=== PATIENT | female | born 2000 | race Two or more races ===

== ENCOUNTER 2019-08-24 19:31 | Emergency (ER) | payer OTHER ==
[~2019-08-24] VITALS: Ht 167.6 cm; Wt 127.0 kg
[2019-08-24 22:49] LABS: BILIRUBIN,URINE NEGATIVE (NEG); CLARITY,URINE CLEAR; COLOR,URINE YELLOW; NITRITE,URINE NEGATIVE (NEG); PH,URINE 6.5 (<5.0-8.0); PROTEIN,URINE NEGATIVE (NEG-TRACE); UROBILINOGEN,URINE 0.2 mg/dL (0.2 mg/dL)
[2019-08-24 22:54] LABS: BACTERIA,URINE FEW /HPF (0-FEW); RBC,URINE 0 /HPF (0-2); SQUAMOUS EPITHELIAL CELL,UR MOD /LPF; WBC,URINE RARE /HPF (0-4)
--- NOTE | 2019-08-24 22:54 | PHYS DOC ---
Past Medical History Past Medical History: No Pertinent History Past Surgical History: No Surgical History Smoking Status: Never Smoker Alcohol Use: None Adult General Chief Complaint Chief Complaint: ABDOMINAL PAIN IN HPI HPI Patient is a 18 year old female who presents with states that this morning she picked up her daughter and began having bilateral lower abdominal cramping. She states is been intermittent all day. She states is gotten worse tonight. She states that she has been having diarrhea since yesterday. She stated that today she had 6 or 7 bouts of diarrhea. She denies any vomiting or fever or recent illness. She denies any nausea. Patient denies any vaginal bleeding. She states she is 6 weeks and her OB doctor is at [facility]. States she has not taken anything for pain as she had a miscarriage from taking Tylenol the last time. She states that her OB doctor told her not to take any Tylenol. She rates her pain an 8 out of 10. Review of Systems Review of Systems GI: abdominal pain, denies nausea, vomiting, bloody stools. + diarrhea [] All other systems were reviewed and found to be within normal limits, except as documented in this note. Current Medications Current Medications Current Medications Medications (Trade) Dose Ordered Sig/Matilda Start Time Stop Time Status Last Admin Dose Admin Sodium Chloride 1,000 ml @ 1,000 mls/hr 1X ONCE 08/24/19 23:00 08/24/19 23:59 DC 08/24/19 23:26 1,000 MLS/HR Allergies Allergies Allergies Coded Allergies Type Severity Reaction Last Updated Verified No Known Drug Allergies 08/31/15 No Physical Exam Physical Exam Constitutional: Well developed, well nourished, no acute distress, non-toxic appearance. [] HENT: Normocephalic, atraumatic, bilateral external ears normal, oropharynx moist, no oral exudates, nose normal. [] Eyes: PERRLA, EOMI, conjunctiva normal, no discharge. [] Neck: Normal range of motion, no tenderness, supple, no stridor. [] Cardiovascular:Heart rate regular rhythm, no murmur [] Lungs & Thorax: Bilateral breath sounds clear to auscultation [] Abdomen: Bowel sounds normal, soft, RLQ tenderness, no masses, no pulsatile masses. [] Skin: Warm, dry, no erythema, no rash. [] Back: No tenderness, no CVA tenderness. [] Extremities: No tenderness, no cyanosis, no clubbing, ROM intact, no edema. [] Neurologic: Alert and oriented X 3, normal motor function, normal sensory function, no focal deficits noted. [] Psychologic: Affect normal, judgement normal, mood normal. [] Current Patient Data Vital Signs Vital Signs Date Time Temp Pulse Resp B/P (MAP) Pulse Ox O2 Delivery O2 Flow Rate FiO2 08/25/19 01:01 98.5 98.5 08/24/19 19:46 84 16 151/78 (102) 98 Room Air Lab Values Laboratory Tests Test 08/24/19 22:41 08/24/19 22:44 08/25/19 00:18 Urine Collection Type Void Urine Color Yellow Urine Clarity Clear Urine pH 6.5 (<5.0-8.0) Urine Specific [place] 1.025 (1.000-1.030) Urine Protein Negative mg/dL (NEG-TRACE) Urine Glucose (UA) Negative mg/dL (NEG) Urine Ketones (Stick) Negative mg/dL (NEG) Urine Blood Negative (NEG) Urine Nitrite Negative (NEG) Urine Bilirubin Negative (NEG) Urine Urobilinogen Dipstick 0.2 mg/dL (0.2 mg/dL) Urine Leukocyte Esterase Negative (NEG) Urine RBC 0 /HPF (0-2) Urine WBC Rare /HPF (0-4) Urine Squamous Epithelial Cells Mod /LPF Urine Bacteria Few /HPF (0-FEW) Urine Mucus Marked /LPF POC Urine HCG, Qualitative Hcg positive (Negative) White Blood Count 18.4 x10^3/uL (4.0-11.0) H Red Blood Count 5.02 x10^6/uL (3.50-5.40) Hemoglobin 11.6 g/dL (12.0-15.5) L Hematocrit 36.7 % (36.0-47.0) Mean Corpuscular Volume 73 fL (79-100) L Mean Corpuscular Hemoglobin 23 pg (25-35) L Mean Corpuscular Hemoglobin Concent 32 g/dL (31-37) Red Cell Distribution Width 15.2 % (11.5-14.5) H Platelet Count 284 x10^3/uL (140-400) Neutrophils (%) (Auto) 68 % (31-73) Lymphocytes (%) (Auto) 26 % (24-48) Monocytes (%) (Auto) 5 % (0-9) Eosinophils (%) (Auto) 0 % (0-3) Basophils (%) (Auto) 1 % (0-3) Neutrophils # (Auto) 12.5 x10^3/uL (1.8-7.7) H Lymphocytes # (Auto) 4.9 x10^3/uL (1.0-4.8) H Monocytes # (Auto) 0.9 x10^3/uL (0.0-1.1) Eosinophils # (Auto) 0.0 x10^3/uL (0.0-0.7) Basophils # (Auto) 0.1 x10^3/uL (0.0-0.2) Prothrombin Time 13.5 SEC (11.7-14.0) Prothrombin Time INR 1.1 (0.8-1.1) Maternal Serum HCG Beta Subunit 388 mIU/mL (0-5) H Sodium Level 138 mmol/L (136-145) Potassium Level 3.9 mmol/L (3.5-5.1) Chloride Level 103 mmol/L (98-107) Carbon Dioxide Level 24 mmol/L (21-32) Anion Gap 11 (6-14) Blood Urea Nitrogen 10 mg/dL (7-20) Creatinine 0.5 mg/dL (0.6-1.0) L Estimated GFR (Cockcroft-Gault) 157.3 BUN/Creatinine Ratio 20 (6-20) Glucose Level 95 mg/dL (70-99) Calcium Level 9.1 mg/dL (8.5-10.1) Total Bilirubin 0.2 mg/dL (0.2-1.0) Aspartate Amino Transferase (AST) 13 U/L (15-37) L Alanine Aminotransferase (ALT) 18 U/L (14-59) Alkaline Phosphatase 91 U/L (46-116) Total Protein 6.9 g/dL (6.4-8.2) Albumin 3.5 g/dL (3.4-5.0) Albumin/Globulin Ratio 1.0 (1.0-1.7) Laboratory Tests 08/25/19 00:18 Laboratory Tests 08/25/19 00:18 EKG EKG [] Radiology/Procedures Radiology/Procedures [] Impressions: [facility] [address] [place] [address] IMAGING REPORT Signed PATIENT: DENAE MONIQUE ACCOUNT: [id number] : 2000 LOCATION: ER AGE: 18 SEX: F EXAM STATUS: REG ER ORD. PHYSICIAN: MICHEAL MADISON APRN REASON: abdominal pain PROCEDURE: OB <14 WKS W/TV INDICATION: Pelvic cramping COMPARISON: None. TECHNIQUE: Grayscale and color ultrasound images uterus and adnexa. Transabdominal and transvaginal images obtained. Transvaginal images were needed to better visualize structures that were limited on transabdominal imaging. FINDINGS: Uterus: 102 x 67 x 58 mm. Endometrial Stripe: 17 mm. Right Ovary: 49 x 46 x 42 mm. Left Ovary: Obscured. No intrauterine gestational sac is seen. Loops of bowel are seen within the right lower quadrant. Small amount of free fluid. There is a round structure seen within the pelvis just posterior to the cervix. Cystic lesion right adnexa measuring 40 x 32 mm. Likely arising from the ovary. Within the right ovary there is a mixed echogenicity lesion seen with echogenic rim and complex cystic central portion. This lesion measures up to about 29 mm. IMPRESSION: * No intrauterine gestational sac is identified. * There are couple lesions at the right ovary including an ovarian cyst as well as a complex cystic lesion with echogenic rim. This could be from a corpus luteum cyst but follow-up could be obtained to ensure no increase. * There is some free fluid seen within the pelvis. Posterior to the cervix there is a round curvilinear structure seen within this area of free fluid. This has a nonspecific appearance but given that this has a similar appearance to a yolk sac close follow-up will be needed to ensure that there is not an ectopic given the lack of intrauterine gestational sac. Electronically signed by: Tami Velazco MD (08/24/2019 11:37 PM) [id number] DICTATED and SIGNED BY: TAMI VELAZCO MD DATE: 08/24/19 2337 Course & Med Decision Making Course & Med Decision Making Pertinent Labs and Imaging studies reviewed. (See chart for details) Ambulatory with a steady gait. Alert and oriented. Speaks in full clear sentences. Denies dysuria symptoms, chest pain, shortness of air, cough, fever, nausea, vomiting, headache, dizziness, LOC, numbness or tingling, visual changes. Lungs are clear to auscultation all lobes. Patient denies any blood in her stools or in her urine. Patient has tenderness with palpation to her abdomen the right lower quadrant. No extremity swelling. Denies abnormal or odorous vaginal discharge. Denies any STD concerns. Patient states she has a clear vaginal discharge. LMP 07/23/19. HCG Beta Serum 388, WBC 18.4. Urinalysis is unremarkable. IMPRESSION: * No intrauterine gestational sac is identified. * There are couple lesions at the right ovary including an ovarian cyst as well as a complex cystic lesion with echogenic rim. This could be from a corpus luteum cyst but follow-up could be obtained to ensure no increase. * There is some free fluid seen within the pelvis. Posterior to the cervix there is a round curvilinear structure seen within this area of free fluid. This has a nonspecific appearance but given that this has a similar appearance to a yolk sac close follow-up will be needed to ensure that there is not an ectopic given the lack of intrauterine gestational sac. Dr Li states that the patient only need close follow up and repeat count and US. This can be done with Dr Li or with the patients already established OB doctor. [] Dragon Disclaimer Dragon Disclaimer This electronic medical record was generated, in whole or in part, using a voice recognition dictation system. Departure Departure Impression: Primary Impression: Abdominal pain affecting Disposition: 01 HOME, SELF-CARE Condition: STABLE Referrals: SANTOS LOPEZ MD (PCP) OMAR BARKSDALE MD Patient Instructions: Abdominal Pain During Additional Instructions: Is very important that you need to follow-up with your OB doctor in the next couple days to have a repeat beta count and ultrasound done. You can also follow-up with the OB referral I put in your paperwork. If you begin bleeding vaginally you need to return to the emergency room. If you begin having worsening continuous abdominal pain that is very severe you need to return to the emergency room or go to your OB doctor. MICHEAL MADISON [employer] Aug 24, 2019 22:54
[2019-08-24] MEDS ORDERED: IV NORMAL SALINE 1000ML BAG 1,000 ML IV ONE (23:00)
--- NOTE | 2019-08-24 23:40 | RAD ---
INDICATION: Pelvic cramping COMPARISON: None. TECHNIQUE: Grayscale and color ultrasound images uterus and adnexa. Transabdominal and transvaginal images obtained. Transvaginal images were needed to better visualize structures that were limited on transabdominal imaging. FINDINGS: Uterus: 102 x 67 x 58 mm. Endometrial Stripe: 17 mm. Right Ovary: 49 x 46 x 42 mm. Left Ovary: Obscured. No intrauterine gestational sac is seen. Loops of bowel are seen within the right lower quadrant. Small amount of free fluid. There is a round structure seen within the pelvis just posterior to the cervix. Cystic lesion right adnexa measuring 40 x 32 mm. Likely arising from the ovary. Within the right ovary there is a mixed echogenicity lesion seen with echogenic rim and complex cystic central portion. This lesion measures up to about 29 mm. IMPRESSION: * No intrauterine gestational sac is identified. * There are couple lesions at the right ovary including an ovarian cyst as well as a complex cystic lesion with echogenic rim. This could be from a corpus luteum cyst but follow-up could be obtained to ensure no increase. * There is some free fluid seen within the pelvis. Posterior to the cervix there is a round curvilinear structure seen within this area of free fluid. This has a nonspecific appearance but given that this has a similar appearance to a yolk sac close follow-up will be needed to ensure that there is not an ectopic given the lack of intrauterine gestational sac. Electronically signed by: Saeed Mcbride MD (08/24/2019 11:37 PM) [id number]
[2019-08-25 00:28] LABS: BASO # 0.1 x10^3/uL (0.0-0.2); BASO % 1 % (0-3); EOS % 0 % (0-3); HEMATOCRIT 36.7 % (36.0-47.0); HEMOGLOBIN 11.6 g/dL (12.0-15.5); LYMPH # 4.9 x10^3/uL (1.0-4.8); LYMPH % 26 % (24-48); MEAN CORPUSCULAR HEMOGLOBIN 23 pg (25-35); MEAN CORPUSCULAR HGB CONC 32 g/dL (31-37); MEAN CORPUSCULAR VOLUME 73 fL (79-100); MONO # 0.9 x10^3/uL (0.0-1.1); MONO % 5 % (0-9); NEUT # 12.5 x10^3/uL (1.8-7.7); NEUT % 68 % (31-73); PLATELET COUNT 284 x10^3/uL (140-400); RED BLOOD COUNT 5.02 x10^6/uL (3.50-5.40); RED CELL DISTRIBUTION WIDTH 15.2 % (11.5-14.5); WHITE BLOOD COUNT 18.4 x10^3/uL (4.0-11.0)
[2019-08-25 00:35] LABS: PROTHROMBIN TIME PATIENT 13.5 SEC (11.7-14.0)
[2019-08-25 00:36] LABS: CALCIUM 9.1 mg/dL (8.5-10.1); CREATININE 0.5 mg/dL (0.6-1.0); GFR 157.3; POTASSIUM 3.9 mmol/L (3.5-5.1)
[2019-08-25 00:41] LABS: ALBUMIN 3.5 g/dL (3.4-5.0); TOTAL BILIRUBIN 0.2 mg/dL (0.2-1.0); TOTAL PROTEIN 6.9 g/dL (6.4-8.2)
[2019-08-25 01:37] VITALS: BP 128/60
== END 2019-08-25 01:35 | disposition home or self-care (01) ==
LOC: ER 19:31
DX: O26.891 Other specified pregnancy related conditions, first trimester (principal); R10.30 Lower abdominal pain, unspecified; R19.7 Diarrhea, unspecified; Z3A.01 Less than 8 weeks gestation of pregnancy
CPT/HCPCS: 36415; 76801; 76817; 80053; 81001; 81025; 84702; 85025; 85610; 96360; 99284; J7030